=== PATIENT | male | born 1965 | race African-American/Black ===

== ENCOUNTER 2017-09-12 01:34 | Emergency (ER) | payer MEDICAID ==
[~2017-09-12] VITALS: Ht 170.2 cm; Wt 64.0 kg
[2017-09-12 07:42] VITALS: BP 116/79
== END 2017-09-12 09:01 | disposition home or self-care (01) ==
LOC: ER 01:34
DX: H93.11 Tinnitus, right ear (principal); R42 Dizziness and giddiness; W23.0XXA Caught, crushed, jammed, or pinched between moving objects, initial encounter; Y93.89 Activity, other specified; Y92.811 Bus as the place of occurrence of the external cause; F17.210 Nicotine dependence, cigarettes, uncomplicated
CPT/HCPCS: 99281

== ENCOUNTER 2020-06-28 01:48 | Emergency (ER) | payer MEDICAID ==
[~2020-06-28] VITALS: Ht 170.2 cm; Wt 59.0 kg
[2020-06-28 02:22] VITALS: BP 103/64
== END 2020-06-28 05:05 | disposition home or self-care (01) ==
LOC: ER 01:48
DX: M25.512 Pain in left shoulder (principal)
CPT/HCPCS: 99281

== ENCOUNTER 2022-08-12 15:35 | Emergency (ER) | payer MEDICAID ==
[~2022-08-12] VITALS: Ht 170.2 cm; Wt 68.0 kg
[2022-08-12 16:27] VITALS: BP 112/72
== END 2022-08-12 19:22 | disposition home or self-care (01) ==
LOC: ER 15:35
DX: H00.11 Chalazion right upper eyelid (principal)
CPT/HCPCS: 99281